=== PATIENT | female | born 1965 | race Caucasian/White ===

== ENCOUNTER 2024-02-09 20:35 | Emergency (ER) | payer BC ==
[~2024-02-09] VITALS: Ht 170.2 cm; Wt 116.1 kg
--- OUTSIDE RECORDS SUMMARY | 2024-02-09 20:41 | XMS ---
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 Joaquin has no Care Guidelines for this patient. Kassie VISIT COUNT (12 MO.) 2 [facility]3][place] [facility]. TOTAL 2 NOTE: Visits indicate total known visits. ED/C VISIT TRACKING (12 MO.) [facility] COMPLAINT: - IV THERAPY 02/09/2024 16:26 [facility] [place] TYPE: Emergency COMPLAINT: - UTI INPATIENT VISIT TRACKING (12 MO.) No inpatient visits to display in this time frame [id number]
[2024-02-09] MEDS ORDERED: ERTAPENEM SODIUM 1 GM/10 ML VIAL IM ONE (22:30)
[2024-02-09 23:46] VITALS: BP 134/69
== END 2024-02-09 23:20 | disposition home or self-care (01) ==
LOC: ED 20:35
DX: N39.0 Urinary tract infection, site not specified (principal); Z88.2 Allergy status to sulfonamides; Z88.8 Allergy status to other drugs, medicaments and biological substances
CPT/HCPCS: 96372; 99283-25; J1335

== ENCOUNTER 2024-02-10 19:30 | Emergency (ER) | payer BC ==
[~2024-02-10] VITALS: Ht 170.2 cm; Wt 117.0 kg
--- OUTSIDE RECORDS SUMMARY | 2024-02-10 19:37 | XMS ---
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 Joaquin has no Care Guidelines for this patient. Kass[facility] (12 MO.) [facility] NOTE: Visits indicate total known visits. ED/C VISIT TRACKING (12 MO.) 02[facility]10[facility]2024 19:[facility] [place] [facility] COMPLAINT: - IV THERAPY 02/09/2024 20:35 [facility] [place] TYPE: Emergency COMPLAINT: - IV THERAPY 02/09/2024 16:26 [facility] Kemp [place] TYPE: Emergency COMPLAINT: - UTI INPATIENT VISIT TRACKING (12 MO.) No inpatient visits to display in this time frame [id number]
[2024-02-10] MEDS ORDERED: ERTAPENEM SODIUM 1 GM in SODIUM CHLORIDE 0.9% 50 ML IV ONE (19:45)
[2024-02-10] MEDS ORDERED: ERTAPENEM SODIUM 1 GM/10 ML VIAL ONE (20:21)
[2024-02-10 21:19] VITALS: BP 138/63
== END 2024-02-10 21:28 | disposition home or self-care (01) ==
LOC: ED 19:30
DX: N39.0 Urinary tract infection, site not specified (principal); Z88.8 Allergy status to other drugs, medicaments and biological substances; Z88.2 Allergy status to sulfonamides
CPT/HCPCS: 96365; 99283-25; J1335

== ENCOUNTER 2024-02-11 19:42 | Emergency (ER) | payer BC ==
[~2024-02-11] VITALS: Ht 170.2 cm; Wt 116.9 kg
--- OUTSIDE RECORDS SUMMARY | 2024-02-11 19:43 | XMS ---
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 - 2 Visits in 30 Days CARE PROVIDERS There are no care providers on record at this time. Joaquin has no Care Guidelines for this patient. Kassie VISIT COUNT (12 MO.) 4 [place] [facility] TOTAL 4 NOTE: Visits indicate total known visits. ED/C VISIT TRACKING (12 MO.) 02/11/2024 19:42 [facility] [place] TYPE: Emergency COMPLAINT: - IV THERAPY 02/10/2024 19:30 [facility] Kemp [place] TYPE: Emergency COMPLAINT: - IV THERAPY 02/09/2024 20:35 [facility] Kemp [place] TYPE: Emergency COMPLAINT: - IV THERAPY 02/09/2024 16:26 [facility] Kemp [place] TYPE: Emergency COMPLAINT: - UTI INPATIENT VISIT TRACKING (12 MO.) No inpatient visits to display in this time frame [id number]
[2024-02-11] MEDS ORDERED: ERTAPENEM SODIUM 1 GM in SODIUM CHLORIDE 0.9% 50 ML IV ONE (19:45)
[2024-02-11] MEDS ORDERED: ERTAPENEM SODIUM 1 GM/10 ML VIAL ONE (20:01)
[2024-02-11 20:45] LABS: BILIRUBIN, URINE NEGATIVE (negative); BLOOD/HGB, URINE NEGATIVE (Negative); KETONE, URINE NEGATIVE (Negative); LEUK ESTERASE, URINE NEGATIVE (negative); NITRITE, URINE NEGATIVE (negative)
[2024-02-11 21:28] VITALS: BP 133/78
== END 2024-02-11 21:29 | disposition home or self-care (01) ==
LOC: ED 19:42
PROVIDERS: Internal Medicine
DX: Z76.89 Persons encountering health services in other specified circumstances (principal); N39.0 Urinary tract infection, site not specified; Z88.2 Allergy status to sulfonamides; Z88.8 Allergy status to other drugs, medicaments and biological substances; Z88.1 Allergy status to other antibiotic agents
CPT/HCPCS: 81003; 96365; 99283-25; J1335

== ENCOUNTER 2024-07-27 19:14 | Emergency (ER) | payer BC ==
[~2024-07-27] VITALS: Ht 170.2 cm; Wt 114.7 kg
--- OUTSIDE RECORDS SUMMARY | 2024-07-27 19:21 | XMS ---
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 Joaquin has no Care Guidelines for this patient. Kassie VISIT COUNT (12 MO.) 5 JOCELYN Deluca TOTAL 5 NOTE: Visits indicate total known visits. ED/UCC VISIT TRACKING (12 MO.) 07/27/2024 19:15 [facility] [place] TYPE: Emergency COMPLAINT: - POSS UTI 02/11/2024 19:[facility] [place] [facility] COMPLAINT: - IV THERAPY DIAGNOSES: - Allergy status to other antibiotic agents - Allergy status to other drugs, medicaments and biological substances - Allergy status to sulfonamides - Persons encountering health services in other specified circumstances - Urinary tract infection, site not specified - Urinary tract infection, site not specified 02/10/2024 19:30 [facility] [place] [facility] COMPLAINT: - IV THERAPY DIAGNOSES: - Allergy status to other drugs, medicaments and biological substances - Allergy status to sulfonamides - Urinary tract infection, site not specified 02/09/2024 20:35 [facility] [place] [facility] COMPLAINT: - IV THERAPY DIAGNOSES: - Allergy status to other drugs, medicaments and biological substances - Allergy status to sulfonamides - Unspecified symptoms and signs involving the genitourinary system - Urinary tract infection, site not specified 02/09/2024 16:26 [facility] Kemp [place] TYPE: Emergency COMPLAINT: - UTI INPATIENT VISIT TRACKING (12 MO.) No inpatient visits to display in this time frame [id number]
[2024-07-27 20:07] LABS: BILIRUBIN, URINE NEGATIVE (negative); BLOOD/HGB, URINE NEGATIVE (Negative); KETONE, URINE NEGATIVE (Negative); LEUK ESTERASE, URINE NEGATIVE (negative); NITRITE, URINE NEGATIVE (negative)
[2024-07-27] MEDS ORDERED: OXYBUTYNIN CHLO10 MG PO (20:28)
[2024-07-27] MEDS ORDERED: oxyBUTYnin chloride 5 MG TAB PO ONE (20:30)
[2024-07-27 20:35] VITALS: BP 160/84
== END 2024-07-27 20:36 | disposition home or self-care (01) ==
LOC: ED 19:14
PROVIDERS: Family Medicine
DX: N32.89 Other specified disorders of bladder (principal); I10 Essential (primary) hypertension; Z88.6 Allergy status to analgesic agent; Z88.2 Allergy status to sulfonamides; Z88.1 Allergy status to other antibiotic agents; Z88.8 Allergy status to other drugs, medicaments and biological substances
CPT/HCPCS: 81003; 87077; 87088; 87186; 99283